=== PATIENT | female | born 1965 | race Caucasian/White ===

== ENCOUNTER 2020-06-20 21:17 | Emergency (ER) | payer OTHER ==
[2020-06-20] MEDS ORDERED: predniSONE 20 MG TAB PO ONE (22:24)
[2020-06-20] MEDS ORDERED: AZITHROMYCIN 250 MG TAB PO ONE (22:24)
--- NOTE | 2020-06-20 22:27 | ED.PDOC ---
History of Present Illness - General Chief Complaint: Respiratory Problem Time Seen by Provider: 06/20/20 22:09 Source: patient Exam Limitations: no limitations - History of Present Illness Initial Comments: The patient is a 54-year-old female presented emergency room secondary to a cough for the last 5 or 6 days. No real shortness of breath. She has smoked extensively for many years. No history of asthma. Cough is minimally productive. No chest pain. No palpitations. No sore throat or runny nose. She is not hypoxic and vital signs are stable. Timing/Duration: other Severity: moderate Improving Factors: nothing Worsening Factors: nothing Associated Symptoms: cough Allergies/Adverse Reactions: Allergies Gabapentin Allergy (Verified 06/20/20 22:09) Penicillin G Allergy (Verified 06/20/20 22:09) Home Medications: Ambulatory Orders Azithromycin 500 mg PO DAILY #5 tab 06/20/20 predniSONE [Prednisone] 40 mg PO DAILY #10 tab 06/20/20 Review of Systems - Review of Systems Constitutional: States: no symptoms reported EENTM: States: no symptoms reported Respiratory: States: cough Cardiology: States: no symptoms reported Gastrointestinal/Abdominal: States: no symptoms reported Genitourinary: States: no symptoms reported Musculoskeletal: States: no symptoms reported Skin: States: no symptoms reported Neurological: States: no symptoms reported Endocrine: States: no symptoms reported All other Systems: No Change from Baseline Past Medical History (General) - Patient Medical History Hx Seizures: Yes Hx Hypertension: Yes - Vaccination History Hx Tetanus, Diphtheria Vaccination: Yes Hx Influenza Vaccination: Yes Hx Pneumococcal Vaccination: No - Social History Hx Tobacco Use: Yes Hx Alcohol Use: No Hx Substance Use: No Hx Depression: No Family Medical History - Family History Mother Family History: Unknown Physical Exam - Physical Exam General Appearance: Alert, Comfortable, No apparent distress Eye Exam: bilateral normal Ears, Nose, Throat: hearing grossly normal, normal ENT inspection, normal pharynx Neck: non-tender, full range of motion, supple Respiratory: no accessory muscle use, respiratory distress, rhonchi - Mild scattered Cardiovascular/Chest: normal peripheral pulses, regular rate, rhythm, no edema Peripheral Pulses: radial,right: 2+, radial,left: 2+ Gastrointestinal/Abdominal: non tender, soft Rectal Exam: deferred Back Exam: no CVA tenderness, no vertebral tenderness Extremity: normal range of motion, non-tender, normal inspection, no pedal edema, normal capillary refill 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 The patient is going be placed on prednisone for the next 7 days and oral azithromycin for the next 5 days. She needs to stop smoking. She needs a new primary care doctor. ER warnings are given for any worsening. She tested negative for coronavirus today. joselin dietrich [id number] - Results/Orders Results/Orders: Rapid coronavirus test is negative. Departure - Departure Clinical Impression: COPD with exacerbation Disposition: Discharge to Home or Self Care Condition: Fair Departure Forms: ED Discharge - Pt. Copy, Patient Portal Self Enrollment Instructions: Exacerbation of COPD (DC) Diet: regular diet Activity: increase activity as tolerated Prescriptions: Azithromycin 500 mg PO DAILY #5 tab predniSONE [Prednisone] 40 mg PO DAILY #10 tab Home Medications: Ambulatory Orders Azithromycin 500 mg PO DAILY #5 tab 06/20/20 predniSONE [Prednisone] 40 mg PO DAILY #10 tab 06/20/20 Additional Instructions: The patient is a 54-year-old female presents emergency room with a mild COPD exacerbation, primarily an acute bronchitis. The patient is going be placed on prednisone for the next 7 days and oral azithromycin for the next 5 days. She needs to stop smoking. She needs a new primary care doctor. ER warnings are given for any worsening. She tested negative for coronavirus today.
[2020-06-20 22:45] VITALS: BP 121/68; TEMP 97.9; O2SAT 96
== END 2020-06-20 22:45 | disposition home or self-care (01) ==
LOC: ER 21:17
DX: J44.1 Chronic obstructive pulmonary disease with (acute) exacerbation (principal); R56.9 Unspecified convulsions; I10 Essential (primary) hypertension; Z87.891 Personal history of nicotine dependence; Z79.899 Other long term (current) drug therapy; Z88.8 Allergy status to other drugs, medicaments and biological substances; Z88.0 Allergy status to penicillin; Z20.828 Contact with and (suspected) exposure to other viral communicable diseases
CPT/HCPCS: 87635; J7512; Q0144

== ENCOUNTER 2020-09-11 09:59 | Emergency (ER) | payer OTHER ==
[2020-09-11 10:23] VITALS: O2SAT 98
--- NOTE | 2020-09-11 10:25 | ED.PDOC ---
History of Present Illness - General Chief Complaint: Neuro Symptoms/Deficits Stated Complaint: dizziness Time Seen by Provider: 09/11/20 10:06 Source: patient, RN notes reviewed, Vital Signs reviewed, EMS notes reviewed Exam Limitations: no limitations - History of Present Illness Initial Comments: The patient is a 55F with PMH significant for COPD and seizures who presents wi th chief complaint of dizziness. She states that for the past 3-4 days she has been feeling dizzy "like I am drunk." She notes that the symptoms are continuous but occasionally worsen. She is unable to identify any specific modifying factors. She also notes that she has occasional palpitations but she does not always experience palpitations with her dizziness episode. She states that when it gets particularly bad she will lay down "and I don't remember falling asleep but I will wake up confused." She states that she has some mild shortness of breath that she thinks is chronic and related to her COPD. She has neck pain "at the back of my neck like a heating pad." No chest pain, nausea or vomiting. No focal weakness, numbness or tingling. She is unable to identify any specific modifying factors. She states that she has been off of her keppra for the past three months because she didn't like the way that it made her feel. No other complaints at this time. Allergies/Adverse Reactions: Allergies Gabapentin Allergy (Verified 09/11/20 10:23) Penicillin G Allergy (Verified 09/11/20 10:23) Home Medications: Ambulatory Orders Azithromycin 500 mg PO DAILY #5 tab 06/20/20 predniSONE [Prednisone] 40 mg PO DAILY #10 tab 06/20/20 Meclizine HCl [Meclizine 25] 25 mg PO Q6HR PRN #20 tab 09/11/20 Phenytoin Sodium Cap Extended [Dilantin Cap] 100 mg PO TID #90 cap 09/11/20 Review of Systems - Review of Systems Constitutional: States: malaise. Denies: chills, fever EENTM: Denies: eye pain, blurred vision, double vision Respiratory: States: short of breath. Denies: cough Cardiology: States: palpitations. Denies: chest pain, syncope Gastrointestinal/Abdominal: Denies: abdominal pain, diarrhea, nausea, vomiting Genitourinary: States: no symptoms reported Musculoskeletal: States: muscle stiffness, neck pain Skin: States: no symptoms reported Neurological: States: anxiety. Denies: headache, numbness, paresthesia, pre- existing deficit, seizure, tingling, tremors, weakness Endocrine: States: no symptoms reported Hematologic/Lymphatic: States: no symptoms reported All other Systems: Reviewed and Negative Past Medical History (General) - Patient Medical History Hx Seizures: Yes Hx Hypertension: Yes - Vaccination History Hx Tetanus, Diphtheria Vaccination: Yes Hx Influenza Vaccination: Yes Hx Pneumococcal Vaccination: No - Social History Hx Tobacco Use: Yes Hx Alcohol Use: No Hx Substance Use: No Hx Depression: No Family Medical History - Family History Mother Family History: Unknown Physical Exam - Physical Exam General Appearance: Anxious, No apparent distress Ears, Nose, Throat: hearing grossly normal, normal ENT inspection Neck: non-tender, full range of motion, supple, normal inspection Respiratory: chest non-tender, lungs clear, normal breath sounds, no respiratory distress, no accessory muscle use Cardiovascular/Chest: normal peripheral pulses, regular rate, rhythm, no edema, no gallop, no JVD, no murmur Gastrointestinal/Abdominal: non tender, soft Extremity: normal range of motion, non-tender, normal inspection, no pedal edema 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 There are no findings on CT head and her neurologic exam is normal. She has normal strength, sensation, rapid alternating movements and gait. No events on telemetry, EKG is normal except for occasional PVCs and troponin is normal. 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 May be related to vertigo vs. unmanaged seizures. Will continue outpatient symptomatic management with depakote and meclizine. She will follow up with PCP for continued outpatient follow up. Home care instructions and return indications reviewed. - Results/Orders Results/Orders: CT head: IMPRESSION: 1. Age-appropriate atrophy with evidence of old small vessel ischemic type changes seen mainly in the frontal lobes bilaterally right greater than left. 2. No acute abnormality is seen on noncontrast CT of the head. 3. Moderate subacute to chronic ethmoid and sphenoid sinusitis is seen. Laboratory Tests 09/11/20 09/11/2021 10:30 10:30 10:30 WBC 5.4 RBC 4.94 Hgb 14.2 Hct 42.7 MCV 86.3 MCH 28.7 MCHC 33.2 RDW 14.0 Plt Count 176 MPV 9.0 Absolute Neuts (auto) 2.60 Absolute Lymphs (auto) 2.30 Absolute Monos (auto) 0.30 Absolute Eos (auto) 0.20 Absolute Basos (auto) 0.10 Neutrophils % 47.9 Lymphocytes % 42.2 Monocytes % 5.3 Eosinophils % 3.2 Basophils % 1.4 Sodium 136 Potassium 3.6 Chloride 103 Carbon Dioxide 23 Anion Gap 13.6 BUN 12 Creatinine 0.79 BUN/Creatinine Ratio 15.2 Random Glucose 156 H Serum Osmolality 274.9 L Calcium 8.9 Troponin I < 0.02 - EKG/XRAY/CT Comments: 1009 sinus tachycardia, occasional PVC Departure - Departure Clinical Impression: Vertigo Time of Disposition: 11:33 Disposition: Discharge to Home or Self Care Condition: Good Departure Forms: ED Discharge - Pt. Copy, Patient Portal Self Enrollment Instructions: Vertigo (a Type of Dizziness) (DC) Diet: resume usual diet Activity: increase activity as tolerated Referrals: [facility] [Provider Group] - 1-2 Weeks Prescriptions: Meclizine HCl [Meclizine 25] 25 mg PO Q6HR PRN #20 tab PRN Reason: Dizziness Phenytoin Sodium Cap Extended [Dilantin Cap] 100 mg PO TID #90 cap Home Medications: Ambulatory Orders Azithromycin 500 mg PO DAILY #5 tab 06/20/20 predniSONE [Prednisone] 40 mg PO DAILY #10 tab 06/20/20 Meclizine HCl [Meclizine 25] 25 mg PO Q6HR PRN #20 tab 09/11/20 Phenytoin Sodium Cap Extended [Dilantin Cap] 100 mg PO TID #90 cap 09/11/20
[2020-09-11] MEDS ORDERED: SODIUM CHLORIDE 0.9% 1000ML 1,000 ML IVS ONE (10:28)
[2020-09-11] MEDS ORDERED: MECLIZINE HCL 12.5 MG TAB PO ONE (10:29)
[2020-09-11] MEDS ORDERED: MECLIZINE HCL 12.5 MG TAB ONE (10:56)
[2020-09-11] MEDS ORDERED: SODIUM CHLORIDE 0.9% 1000ML 1,000 ML ONE (10:57)
--- NOTE | 2020-09-11 10:59 | CT ---
EXAM DESCRIPTION: Head CLINICAL HISTORY: dizziness, vertigo COMPARISON: None TECHNIQUE: Noncontrast transaxial CT images of the head are obtained from base to vertex. This exam was performed according to our departmental dose-optimization program, which includes automated exposure control, adjustment of the mA and/or kV according to patient size and/or use of iterative reconstruction technique. FINDINGS: The midline structures are not displaced. Sulci are age-appropriate. There are areas of decreased attenuation in the periventricular white matter and the white matter of the centrum semiovale mainly in the frontal lobes. There is no evidence of mass, mass-effect, hydrocephalus, or acute intracranial hemorrhage. No abnormal extra axial fluid collection is seen. Bone windows show no evidence of depressed skull fracture. The visualized paranasal sinuses shows [id number] mucosal thickening of the ethmoid and sphenoid sinuses. IMPRESSION: 1. Age-appropriate atrophy with evidence of old small vessel ischemic type changes seen mainly in the frontal lobes bilaterally right greater than left. 2. No acute abnormality is seen on noncontrast CT of the head. 3. Moderate subacute to chronic ethmoid and sphenoid sinusitis is seen. Electronically signed by: Haris Guevara MD 09/11/2020 10:57 AM [employer]
[2020-09-11] MEDS ORDERED: ONDANSETRON ODT 8 MG TAB SL ONE (11:38)
[2020-09-11 11:51] VITALS: BP 124/73; TEMP 97.3
== END 2020-09-11 11:51 | disposition home or self-care (01) ==
LOC: ER 09:59
DX: R42 Dizziness and giddiness (principal); I49.3 Ventricular premature depolarization; R00.0 Tachycardia, unspecified; J32.3 Chronic sphenoidal sinusitis; J32.2 Chronic ethmoidal sinusitis; G31.9 Degenerative disease of nervous system, unspecified; J44.9 Chronic obstructive pulmonary disease, unspecified; R56.9 Unspecified convulsions; Z79.899 Other long term (current) drug therapy; Z87.891 Personal history of nicotine dependence
CPT/HCPCS: 36415; 70450; 80048; 84484; 85025; 93005; J7030

== ENCOUNTER → 2020-09-23 | Outpatient (CLI) | payer OTHER | LOC: YCFC.O 09:48 | PROVIDERS: ATTEND Family Medicine | DX: R00.2 Palpitations (principal); Z13.220 Encounter for screening for lipoid disorders; R73.9 Hyperglycemia, unspecified ==

== ENCOUNTER 2020-09-28 23:01 | Emergency (ER) | payer OTHER ==
--- NOTE | 2020-09-28 23:25 | ED.PDOC ---
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 DENIES OTHER SYMPTOMS. DENIES N/V/ DIAPHORESIS. SHE IS A 2PPD SMOKER, FREQUENT ER VISITOR, HISTORY OF ANXIETY. NO PRIOR HX OF VENOUS THROMBOEMBOLISMS. Timing/Duration: 1/2 hour Severity/Quality: mild Location: substernal Chest Pain Radiation: no radiation Activities at Onset: none Prior Chest Pain/Cardiac Workup: no prior chest pain Improving Factors: nothing Allergies/Adverse Reactions: Allergies Gabapentin Allergy (Verified 09/11/20 10:23) Penicillin G Allergy (Verified 09/11/20 10:23) Home Medications: Ambulatory Orders Azithromycin 500 mg PO DAILY #5 tab 06/20/20 predniSONE [Prednisone] 40 mg PO DAILY #10 tab 06/20/20 Meclizine HCl [Meclizine 25] 25 mg PO Q6HR PRN #20 tab 09/11/20 Phenytoin Sodium Cap Extended [Dilantin Cap] 100 mg PO TID #90 cap 09/11/20 Review of Systems - Review of Systems Constitutional: States: no symptoms reported EENTM: States: no symptoms reported Respiratory: States: no symptoms reported Cardiology: States: see HPI Gastrointestinal/Abdominal: States: no symptoms reported Genitourinary: States: no symptoms reported Musculoskeletal: States: no symptoms reported Skin: States: no symptoms reported Neurological: States: no symptoms reported Endocrine: States: no symptoms reported Hematologic/Lymphatic: States: no symptoms reported All other Systems: Reviewed and Negative Past Medical History (General) - Patient Medical History Hx Seizures: Yes Hx of COPD: Yes Hx Hypertension: Yes - Vaccination History Hx Tetanus, Diphtheria Vaccination: Yes Hx Influenza Vaccination: Yes Hx Pneumococcal Vaccination: No - Social History Hx Tobacco Use: Yes Hx Alcohol Use: No Hx Substance Use: No Hx Depression: No Family Medical History - Family History Mother Family History: Unknown Physical Exam - Physical Exam General Appearance: Alert, Anxious, Well Developed, Well Groomed, Well Hydrated, Well Nourished Eyes, Ears, Nose, Throat Exam: TMs normal Neck: non-tender, full range of motion, supple, normal inspection Respiratory: chest non-tender, lungs clear, normal breath sounds, no respiratory distress, no accessory muscle use Cardiovascular/Chest: normal peripheral pulses, regular rate, rhythm, no edema, no gallop, no JVD, no murmur Gastrointestinal/Abdominal: normal bowel sounds, non tender, soft, no organomegaly, no pulsatile mass Extremity: normal range of motion, non-tender, normal inspection, no pedal edema Neurologic: no motor/sensory deficits, alert, normal mood/affect, oriented x 3 Skin Exam: normal color, warm/dry Lymphatic: no adenopathy Progress - Progress Progress: 09/28/20 23:26 EKG: NSR, T WAVE INVERSION IN II AND III, NO EKG FOR COMPARISON. PROLONGED QT, NO STEMI, ABNORMAL EKG. 09/28/20 23:29 CXR: COPD CHANGES, NORMAL HEART SIZE, OTHERWISE NORMAL CXR PER MY INTERPRETATION. 09/28/20 23:30 Departure - Departure Clinical Impression: Pleuritic chest pain Time of Disposition: 23:59 Disposition: Discharge to Home or Self Care Condition: Good Instructions: Chest Pain, Costochondritis, Pleuritic Chest Pain Home Medications: Ambulatory Orders Azithromycin 500 mg PO DAILY #5 tab 06/20/20 predniSONE [Prednisone] 40 mg PO DAILY #10 tab 06/20/20 Meclizine HCl [Meclizine 25] 25 mg PO Q6HR PRN #20 tab 09/11/20 Phenytoin Sodium Cap Extended [Dilantin Cap] 100 mg PO TID #90 cap 09/11/20 Additional Instructions: RECOMMEND OTC IBUPROFEN 800 MG THREE TIMES PER DAY NEEDED.
[2020-09-28] MEDS ORDERED: ASPIRIN (ENTERIC COATED) 325 MG TAB PO ONE (23:31)
[2020-09-28] MEDS ORDERED: ACETAMINOPHEN 500 MG TAB PO ONE (23:32)
--- NOTE | 2020-09-28 23:34 | RAD ---
EXAM DESCRIPTION: XR Chest, 2 Views CLINICAL HISTORY: CHEST PAIN TECHNIQUE: Two views of the chest are submitted. COMPARISON: None available for comparison FINDINGS: Lungs: Hyperinflation. No focal consolidation. Pleura: No appreciable effusion. No pneumothorax. Heart: The cardiothoracic silhouette is within normal limits. Mediastinum: Unremarkable Bones: Mild multilevel spondylosis. Upper abdomen: Right upper quadrant surgical clips. IMPRESSION: No acute disease. Electronically signed by: Khoa Kaur MD 09/28/2020 11:33 PM [facility]
[2020-09-28] MEDS ORDERED: ASPIRIN TABLET 325 MG TAB ONE (23:43)
[2020-09-29 00:18] VITALS: TEMP 98
--- NOTE | 2020-09-29 00:57 | CT ---
EXAM: CT Angiography Chest With Intravenous Contrast CLINICAL HISTORY: The patient is 55 years old and is Female; pain with breathing, and elevated d-dimer TECHNIQUE: Axial computed tomographic angiography images of the chest with intravenous contrast. Sagittal and coronal reformatted images were created and reviewed. This CT exam was performed using one or more of the following dose reduction techniques: automated exposure control, adjustment of the mA and/or kV according to patient size, and/or use of iterative reconstruction technique. MIP reconstructed images were created and reviewed. COMPARISON: No relevant prior studies available. FINDINGS: Pulmonary arteries: No acute finding. No evidence of pulmonary embolism. Contrast bolus/timing suboptimal for detection of pulmonary embolism. Aorta: Atherosclerotic vascular calcifications of the aorta and branch vessels. Scattered areas of noncalcified plaque in the aorta. No thoracic aortic aneurysm. Lungs: Subpleural emphysematous changes in the right lung apex. Lingular scarring. No mass. Pleural space: Unremarkable. No significant effusion. No pneumothorax. Heart: Coronary artery calcifications. No significant pericardial effusion. No evidence of RV dysfunction. Bones/joints: Dextrocurvature of the thoracic spine. No acute fracture. No dislocation. Soft tissues: Unremarkable. Lymph nodes: Unremarkable. No enlarged lymph nodes. Gallbladder and bile ducts: Gallbladder is surgically absent. Other findings: Increased AP diameter of the chest. IMPRESSION: 1. No acute finding. No evidence of pulmonary embolism. 2. Contrast bolus/timing suboptimal for detection of pulmonary embolism. Electronically signed by: Jose Alvarado MD 09/29/2020 12:56 AM [employer]IDEW[employer] REPAIRER
[2020-09-29 01:35] VITALS: BP 125/100; O2SAT 96
== END 2020-09-29 01:05 | disposition home or self-care (01) ==
LOC: ER 23:01
DX: R07.2 Precordial pain (principal); I45.81 Long QT syndrome; R56.9 Unspecified convulsions; J44.9 Chronic obstructive pulmonary disease, unspecified; I10 Essential (primary) hypertension; F17.210 Nicotine dependence, cigarettes, uncomplicated; Z79.899 Other long term (current) drug therapy; Z88.8 Allergy status to other drugs, medicaments and biological substances; Z88.0 Allergy status to penicillin

== ENCOUNTER → 2020-09-30 | Outpatient (CLI) | payer OTHER | LOC: YCFC.O 13:49 | PROVIDERS: ATTEND Family Medicine | DX: R00.2 Palpitations (principal) ==